=== PATIENT | female | born 1950 | race Caucasian/White ===

== ENCOUNTER 2024-04-03 08:27 | Outpatient (CLI) | payer MEDICARE, OTHER | END 2024-04-03 23:59 | disposition home or self-care (01) | LOC: MRI02 08:27 | PROVIDERS: ATTEND Pediatrics Sports Medicine | DX: M19.011 Primary osteoarthritis, right shoulder (principal); M75.111 Incomplete rotator cuff tear or rupture of right shoulder, not specified as traumatic; M75.41 Impingement syndrome of right shoulder; M75.21 Bicipital tendinitis, right shoulder; M75.51 Bursitis of right shoulder | CPT/HCPCS: 73221 ==